=== PATIENT | male | born 1980 | race Two or more races ===

== ENCOUNTER 2017-07-12 10:47 | Emergency (ER) | payer SELFPAY ==
[2017-07-12] MEDS ORDERED: Lidocaine 1% with EPINEPHrine 1:100,000 20 ML MDV INJECT ONE (11:02)
[2017-07-12] MEDS ORDERED: Diphtheria,Pertussis(Acell),Tetanus Vaccine 0.5 ML SDV IM ONE (11:03)
[2017-07-12] MEDS ORDERED: Cephalexin 500 MG Cap PO ONE (12:16)
--- NOTE | 2017-07-12 12:20 | EDM.PDOC ---
ED HPI GENERAL MEDICAL PROBLEM - General Chief Complaint: Laceration Stated Complaint: LT AND LAC Time Seen by Provider: 07/12/17 11:00 Source of Information: Reports: Patient History Limitations: Reports: No Limitations - History of Present Illness INITIAL COMMENTS - FREE TEXT/NARRATIVE: Patient is a 36-year-old male who presents ED complaining of a laceration to the dorsal aspect of the left hand along the distal aspect of the second metacarpal. This is sparing the MCP. Patient states he was using a knife to cut a strap when he accidentally cut himself. He Is not up-to-date with tetanus. Bleeding controlled with direct pressure. No sensory/motor deficits distally. Minimal pain at this time. He has no additional complaints. Left Hand Pain Score (Numeric/FACES): 5 - Related Data Allergies Allergy/AdvReac Type Severity Reaction Status Date / Time No Known Allergies Allergy Verified 07/12/17 10:59 Home Meds: Home Meds Cephalexin [Keflex] 500 mg PO Q8H #21 cap 07/12/17 [Rx] Past Medical History - Past Surgical History Musculoskeletal Surgical History: Reports: Other (See Below) Other Musculoskeletal Surgeries/Procedures:: knee surgery Social & Family History - Tobacco Use Smoking Status *Q: Never Smoker - Caffeine Use Caffeine Use: Reports: Coffee - Recreational Drug Use Recreational Drug Use: No ED ROS GENERAL - Review of Systems Review Of Systems: ROS reveals no pertinent complaints other than HPI. ED EXAM, SKIN/RASH Exam: See Below Exam Limited By: No Limitations General Appearance: Alert, WD/WN, No Apparent Distress Ears: Hearing Grossly Normal Nose: Normal Inspection Throat/Mouth: Normal Voice, No Airway Compromise Neck: Normal Inspection Respiratory/Chest: No Respiratory Distress, No Accessory Muscle Use Cardiovascular: Normal Peripheral Pulses, Regular Rate, Rhythm Peripheral Pulses: 4+: Radial (L) Extremities: Other (2.5 cm full-thickness laceration to the dorsal aspect of the left hand proximal to the MCP. Patient has full extension/flexion of the index finger with minimal pain present with palpation. No pain against resistance. No sensory motor deficits distally.) Neurological: Alert, Oriented, CN II-XII Intact, Normal Cognition, No Motor/ Sensory Deficits Psychiatric: Normal Affect, Normal Mood Skin: Warm, Dry ED SKIN PROCEDURES - Laceration/Wound Repair Left Hand Lac/Wound length In cm: 2.5 (Dorsal aspect along the distal aspect of the second metacarpal) Appearance: Subcutaneous Distal NVT: Neuro & Vascular Intact Anesthetic Type: Local Local Anesthesia - Lidocaine (Xylocaine): 1% with EPI Local Anesthetic Volume: 3cc Skin Prep: Chlorhexidine (Hibiciens), Saline, Sterile Drape Exploration/Debridement/Repair: Wound Explored, In a Bloodless Field, Explored to Base, No Foreign Material Found Closed with: Sutures Suture Size: 4-0 # of Sutures: 4 Suture Type: Prolene, Interrupted, Simple (x1), Mattress (x3) Drain Placement: No Sterile Dressing Applied: Nurse Tetanus Status Addressed: Yes Complications: No Course - Vital Signs Last Recorded V/S: Last Vital Signs Temp 98.9 F 07/12/17 11:00 Pulse 106 H 07/12/17 11:00 Resp 18 07/12/17 11:00 BP 140/85 07/12/17 11:00 Pulse Ox 98 07/12/17 11:00 - Orders/Labs/Meds Meds: Medications Discontinued Medications Generic Name Dose Route Start Last Admin Trade Name Uriah PRN Reason Stop Dose Admin Cephalexin 500 mg 07/12/17 12:16 07/12/17 12:39 Keflex PO 07/12/17 12:17 500 mg ONETIME ONE Administration Diphtheria/Tetanus/Acell Pertussis 0.5 ml 07/12/17 11:03 07/12/17 12:41 Adacel IM 07/12/17 11:04 0.5 ml .ONCE ONE Administration Lidocaine/Epinephrine 20 ml 07/12/17 11:02 07/12/17 12:43 Xylocaine 1% With Epinephrine 1:100,000 INJECT 07/12/17 11:03 20 ml ONETIME ONE Administration - Re-Assessments/Exams Free Text/Narrative Re-Assessment/Exam: Ordered x-ray of the left hand, and lidocaine 1% with epi. Laceration closed with no complications. Due to the proximity of the tendon. I have ordered Keflex 500 mg by mouth. On close examination the tendon was not cut. It is fully intact. Discharge instructions as documented. Departure - Departure Time of Disposition: 12:18 Disposition: Home, Self-Care 01 Condition: Good Clinical Impression: Laceration of hand Qualifiers: Encounter type: initial encounter Foreign body presence: with foreign body Laterality: left Qualified Code(s): S61.422A - Laceration with foreign body of left hand, initial encounter - Discharge Information Prescriptions: Cephalexin [Keflex] 500 mg PO Q8H #21 cap Instructions: Sutured Wound Care, Laceration Care, Adult, [id number], Stitches, Agenda, or Adhesive Wound Closure Referrals: PCP,None [Primary Care Provider] - Forms: ED Department Discharge Additional Instructions: Cleanse site twice daily with soap and water, pat dry, reapply triple antibiotic ointment, and dressing. Keep area clean and dry. Do not soak wound. Sutures come out in 10 days. Take the Keflex as prescribed 500 mg 3 times a day for 7 days. Follow-up with PCP to have the sutures removed. Return to the ED if you develop any new or worsening symptoms.
--- NOTE | 2017-07-14 10:22 | CR ---
Left hand: Two views of the left hand were obtained. Comparison: No prior hand exam. Joint spaces are maintained. No fracture or other bony abnormality is seen. Overlying bandage is noted. No opaque foreign object is seen within the soft tissues. Impression: 1. No abnormality is identified on two-view left hand exam. Diagnostic code #1
== END 2017-07-12 12:46 | disposition home or self-care (01) ==
LOC: JD.ED 10:47
DX: S61.422A Laceration with foreign body of left hand, initial encounter (principal); Z23 Encounter for immunization; W26.0XXA Contact with knife, initial encounter
CPT/HCPCS: 12001; 73120; 90471; 90715; 99283; A9270